=== PATIENT | male | born 1970 | race Caucasian/White ===

== ENCOUNTER 2024-08-09 17:08 | Emergency (ER) | payer OTHER ==
[~2024-08-09] VITALS: Ht 177.8 cm; Wt 100.0 kg
[2024-08-09 17:19] VITALS: O2SAT 99
[2024-08-09 21:05] VITALS: BP 143/98; PULSE 105; RESP 16; TEMP 37.1; O2SAT 95
== END 2024-08-09 21:06 | disposition home or self-care (01) ==
LOC: ER 17:08
DX: F10.129 Alcohol abuse with intoxication, unspecified (principal); E11.9 Type 2 diabetes mellitus without complications; I10 Essential (primary) hypertension; Y90.9 Presence of alcohol in blood, level not specified
CPT/HCPCS: 99283